=== PATIENT | male | born 1950 | race Caucasian/White ===

== ENCOUNTER → 2018-04-04 08:07 | Outpatient (CLI) | payer MEDICARE, OTHER, SELFPAY ==
[2018-04-04 09:22] LABS: Hematocrit 44.7 % (40-54); Hemoglobin 14.3 g/dl (13.0-16.5); Mean Corpuscular Hgb 28.6 pg (27.0-32.0); Mean Corpuscular Volume 89.4 fL (80-94); Platelet Count 141 K/mm3 (150-450); RBC Distribution Width CV 14.1 % (11.6-14.6); RBC Distribution Width SD 45.8 fl (35.1-43.9); White Blood Count 6.6 K/mm3 (4.4-11.0)
[2018-04-04 09:23] LABS: Mean Platelet Vol. 12.1 fl (6.2-12.0); Protein, Urine (Random) 32.8 mg/dL (<11.9); Protein:Creat Ratio 250 mg/g CRE (0-200); Scan Indicated on CBC? Y/N NO
[2018-04-04 09:46] LABS: Cholesterol 226 mg/dL (200); High Density Lipoprotein 49 mg/dL; Triglycerides 171 mg/dL; Very Low Density Lipoprotein 34 mg/dL (5-40)
[2018-04-04 09:48] LABS: Albumin, Serum 3.9 g/dL (3.2-5.0); BUN 27 mg/dL (7-18); BUN/Creat Ratio 20.8 RATIO (10-20); Calcium,Total 9.5 mg/dL (8.5-10.1); Chloride 107 mmol/L (98-107); EST Glomerular Filtration Rate 58 mL/min (>60); Est Glom Filt Rate - Afr Amer 70 mL/min (>60); Glucose 105 mg/dL (74-106); Magnesium 2.4 mg/dL (1.6-2.6); Potassium 4.1 mmol/L (3.5-5.1); Sodium Level 140 mmol/L (136-145)
[2018-04-06 09:26] LABS: PTHIN 39.3 pg/mL (18.4-80.1)
[2018-04-06 09:27] LABS: Vitamin D,25 Hydroxy 47.2 ng/mL (29.95-100.01)
== END ==
PROVIDERS: Family Medicine; Visit Provider Internal Medicine Nephrology
DX: E55.9 Vitamin D deficiency, unspecified (principal); N18.3 Chronic kidney disease, stage 3 (moderate); Z13.0 Encounter for screening for diseases of the blood and blood-forming organs and certain disorders involving the immune mechanism; N05.1 Unspecified nephritic syndrome with focal and segmental glomerular lesions; E78.5 Hyperlipidemia, unspecified
CPT/HCPCS: 36415; 80061; 80069; 82306; 82570; 83735; 83970; 84156; 85027

== ENCOUNTER → 2018-10-02 07:03 | Outpatient (CLI) | payer MEDICARE, OTHER, SELFPAY ==
[2018-10-02 08:16] LABS: Hematocrit 44.2 % (40-54); Hemoglobin 14.4 g/dl (13.0-16.5); Mean Corp Hgb Conc 32.6 g/gl (32-36); Mean Corpuscular Hgb 29.6 pg (27.0-32.0); Mean Corpuscular Volume 90.9 fL (80-94); Mean Platelet Vol. 12.2 fl (6.2-12.0); Platelet Count 133 K/mm3 (150-450); RBC Distribution Width CV 13.7 % (11.6-14.6); RBC Distribution Width SD 45.1 fl (35.1-43.9); Red Blood Count 4.86 M/mm3 (4.6-6.2); White Blood Count 6.8 K/mm3 (4.4-11.0)
[2018-10-02 08:17] LABS: Scan Indicated on CBC? Y/N NO
[2018-10-02 08:23] LABS: Protein, Urine (Random) 52.1 mg/dL (<11.9); Protein:Creat Ratio 310 mg/g CRE (0-200)
[2018-10-02 08:51] LABS: Albumin, Serum 3.7 g/dL (3.2-5.0); BUN 29 mg/dL (7-18); Calcium,Total 9.3 mg/dL (8.5-10.1); Chloride 106 mmol/L (98-107); Creatinine, Serum 1.32 mg/dL (0.70-1.30); EST Glomerular Filtration Rate 57 mL/min (>60); Est Glom Filt Rate - Afr Amer 69 mL/min (>60); Glucose 124 mg/dL (74-106); Phosphorus 3.3 mg/dL (2.5-4.9); Potassium 4.5 mmol/L (3.5-5.1); Sodium Level 142 mmol/L (136-145)
[2018-10-02 08:58] LABS: Vitamin D,25 Hydroxy 31.4 ng/mL (29.95-100.01)
[2018-10-02 08:59] LABS: PTHIN 72.6 pg/mL (18.4-80.1)
== END ==
PROVIDERS: Family Provider Family Medicine; PCP Family Medicine; Referring Provider Internal Medicine Nephrology; Visit Provider Internal Medicine Nephrology
DX: N18.3 Chronic kidney disease, stage 3 (moderate) (principal); N25.81 Secondary hyperparathyroidism of renal origin; E55.9 Vitamin D deficiency, unspecified; Z13.0 Encounter for screening for diseases of the blood and blood-forming organs and certain disorders involving the immune mechanism
CPT/HCPCS: 36415; 80069; 82306; 82570; 83970; 84156; 85027

== ENCOUNTER → 2018-10-15 13:52 | Outpatient (CLI) | payer MEDICARE, OTHER, SELFPAY ==
--- NOTE | 2018-10-15 | LES_PTH ---
PATIENT: LOUISE CASTANEDA LOC: [facility] U#:[id number] AGE/SX: 75/M ROOM: RE10/15/[address]: Dr. Mark Caldera MD : 1950 BED: DIS: SPEC #: [id number] RECD: 10/16/18 13:42 STATUS: BASILIA FRACNISCA #: [id number] CHANTALE: 10/15/18 00:[address]: Mark Caldera DEPT: SURGICAL PATHOLOGY RECD BY: Elian Montgomery ENTERED: 10/16/18 14:40 SP TYPE: Lesion OTHR DR: Mark Caldera MD Tissues: A - Skin of upper extremity and shoulder B - Skin of forearm, NOS Procedures: Surgery Specimen Level IV HEADER OPERATION: Excision skin lesions, left shoulder and left forearm PRE-OP DIAGNOSIS: Suspicious skin lesions TISSUE SUBMITTED: A - Left shoulder, B - Left forearm MICROSCOPIC DIAGNOSIS A. Skin lesion of left shoulder, shave biopsy: Basal cell carcinoma, nodular and ulcerated. See comment. B. Skin lesion of left forearm, shave biopsy: Basal cell carcinoma, nodular and ulcerated. Solar elastosis. See comment. AM:vic 10/19/18 COMMENT A. The lesion measures approximately 8.5 mm in greatest dimension and extends to the deep margin of excision. Clinical correlation is suggested. B. The lesion measures approximately 5 mm in greatest dimension and extends to the deep margin of excision. Clinical correlation is suggested. MICROSCOPIC DESCRIPTION Slides are reviewed. GROSS DESCRIPTION A - Received in fixative is one container labeled with the patient's name and designated left shoulder. The specimen consists of a light galvez shave biopsy of skin measuring 1.3 x 1 x 0.2 cm. The specimen is inked, serially sectioned and totally submitted in one cassette. B - Received in fixative is one container labeled with the patient's name and designated left forearm. The specimen consists of a light galvez shave biopsy of skin measuring 1.5 x 1.2 x 0.1 cm. The specimen is inked, serially sectioned and totally submitted in one cassette. / AM:vic 10/16/09 TC:0 CPT: 41820 x2
== END ==
PROVIDERS: Family Provider Family Medicine; PCP Family Medicine; Referring Provider Family Medicine; Visit Provider Family Medicine
DX: C44.619 Basal cell carcinoma of skin of left upper limb, including shoulder (principal)
CPT/HCPCS: 88305

== ENCOUNTER → 2018-11-19 08:02 | Outpatient (CLI) | payer MEDICARE, OTHER, SELFPAY ==
--- NOTE | 2018-11-19 | LES_PTH ---
PATIENT: LOUISE CASTANEDA LOC: [facility] U#:[id number] AGE/SX: 75/M ROOM: RE11/19/[address]: Dr. Mark Caldera MD : 1950 BED: DIS: SPEC #: [id number] RECD: 11/19/18 17:21 STATUS: BASILIA FRANCISCA #: [id number] CHANTALE: 11/19/18 00:[address]: Mark Caldera DEPT: SURGICAL PATHOLOGY RECD BY: Erwin Dubois ENTERED: 11/20/18 10:55 SP TYPE: Lesion OTHR DR: Mrak Caldera MD Tissues: Skin of back, NOS Procedures: Surgery Specimen Level IV HEADER OPERATION: Shave lesion left upper back PRE-OP DIAGNOSIS: Rule out BCC TISSUE SUBMITTED: Shave lesion left upper back MICROSCOPIC DIAGNOSIS Left upper back skin lesion, shave biopsy: Basal cell carcinoma, superficial nodular and multifocal, completely excised. Solar elastosis. See comment. AM:rg 4/15/19 COMMENT The largest focus measures 1.6 mm in greatest dimension. Case has been reviewed in consultation with Dr. Pendleton who concurs with the above diagnosis. IDC:SJ MICROSCOPIC DESCRIPTION Slides are reviewed. GROSS DESCRIPTION Received in fixative is one container labeled with the patient's name and designated left upper back. The specimen consists of a shave biopsy of galvez-white skin measuring 1.5 x 1 x 0.1 cm. The specimen is inked and submitted entirely in one cassette. It will be serially sectioned at the time of embedding. / BOB:vic 11/20/18 TC:0 CPT: 85172
== END ==
PROVIDERS: Family Provider Family Medicine; PCP Family Medicine; Referring Provider Family Medicine; Visit Provider Family Medicine
DX: L98.9 Disorder of the skin and subcutaneous tissue, unspecified (principal)
CPT/HCPCS: 88305

== ENCOUNTER → 2019-04-30 07:51 | Outpatient (CLI) | payer MEDICARE, OTHER, SELFPAY ==
[2019-04-30 08:33] LABS: Hematocrit 45.1 % (40-54); Hemoglobin 14.6 g/dL (13.0-16.5); Mean Corp Hgb Conc 32.4 g/dL (32-36); Mean Corpuscular Hgb 29.3 pg (27.0-32.0); Mean Corpuscular Volume 90.6 fL (80-94); Mean Platelet Vol. 11.5 fl (6.2-12.0); Platelet Count 141 K/mm3 (150-450); RBC Distribution Width CV 13.1 % (11.6-14.6); RBC Distribution Width SD 42.8 fl (35.1-43.9); Red Blood Count 4.98 M/mm3 (4.6-6.2); White Blood Count 7.7 K/mm3 (4.4-11.0)
[2019-04-30 08:50] LABS: Protein:Creat Ratio 371 mg/g CRE (0-200)
[2019-04-30 08:56] LABS: Cholesterol 252 mg/dL (200); High Density Lipoprotein 45 mg/dL; Triglycerides 304 mg/dL; Very Low Density Lipoprotein 61 mg/dL (5-40)
[2019-04-30 08:58] LABS: Albumin, Serum 3.5 g/dL (3.2-5.0); BUN 21 mg/dL (7-18); BUN/Creat Ratio 15.4 RATIO (10-20); Calcium,Total 9.1 mg/dL (8.5-10.1); Chloride 106 mmol/L (98-107); Creatinine, Serum 1.36 mg/dL (0.70-1.30); EST Glomerular Filtration Rate 55 mL/min (>60); Est Glom Filt Rate - Afr Amer 67 mL/min (>60); Glucose 118 mg/dL (74-106); PSA,Total - Annual Screen 0.88 ng/mL (0.00-4.00); Phosphorus 2.7 mg/dL (2.5-4.9); Potassium 4.4 mmol/L (3.5-5.1); Sodium Level 142 mmol/L (136-145)
[2019-04-30 10:29] LABS: PTHIN 64.3 pg/mL (18.4-80.1)
[2019-04-30 10:41] LABS: Vitamin D,25 Hydroxy 44.5 ng/mL (29.95-100.01)
== END ==
PROVIDERS: Family Provider Family Medicine; PCP Family Medicine; Referring Provider Internal Medicine Nephrology; Visit Provider Internal Medicine Nephrology
DX: N25.81 Secondary hyperparathyroidism of renal origin (principal); I12.9 Hypertensive chronic kidney disease with stage 1 through stage 4 chronic kidney disease, or unspecified chronic kidney disease; N18.3 Chronic kidney disease, stage 3 (moderate); E55.9 Vitamin D deficiency, unspecified; Z13.0 Encounter for screening for diseases of the blood and blood-forming organs and certain disorders involving the immune mechanism; Z12.5 Encounter for screening for malignant neoplasm of prostate; E78.5 Hyperlipidemia, unspecified
CPT/HCPCS: 36415; 80061; 80069; 82306; 82570; 83970; 84153; 84156; 85027; G0103

== ENCOUNTER → 2020-05-30 07:30 | Outpatient (CLI) | payer MEDICARE, OTHER, SELFPAY ==
[2020-05-30 08:40] LABS: Absolute Lymphocyte Count 1.66 X10^3/uL (0.83-4.51); Absolute Neutrophil Count 3.8 X10^3/uL (2.0-7.7); Basophil# 0.04 X10^3/uL; Basophil% 0.7 % (0-1); Eosinophil# 0.11 X10^3/uL; Eosinophils% 1.8 % (0-5); Hematocrit 43.7 % (40-54); Hemoglobin 13.9 g/dL (13.0-16.5); Lymphocyte # 1.66 X10^3/ul (4.0); Mean Corp Hgb Conc 31.8 g/dL (32-36); Mean Corpuscular Hgb 29.2 pg (27.0-32.0); Mean Corpuscular Volume 91.8 fL (80-94); Mean Platelet Vol. 12.1 fl (6.2-12.0); Monocyte# 0.45 X10^3/uL; Monocyte% 7.3 % (0-10); NRBC Flagged by Analyzer 0 % (0-5); Neutrophil # 3.84 X10^3/uL (2.7-7.7); Neutrophil % 62.4 % (47-70); Platelet Count 135 K/mm3 (150-450); RBC Distribution Width CV 13.2 % (11.6-14.6); RBC Distribution Width SD 44.3 fl (35.1-43.9); Red Blood Count 4.76 M/mm3 (4.6-6.2); White Blood Count 6.2 K/mm3 (4.4-11.0)
[2020-05-30 09:21] LABS: Albumin, Serum 3.5 g/dL (3.2-5.0); BUN 24 mg/dL (7-18); BUN/Creat Ratio 18.5 RATIO (10-20); Calcium,Total 8.9 mg/dL (8.5-10.1); Chloride 107 mmol/L (98-107); Cholesterol 208 mg/dL (200); EST Glomerular Filtration Rate 58 mL/min (>60); Est Glom Filt Rate - Afr Amer 70 mL/min (>60); Glucose 123 mg/dL (74-106); High Density Lipoprotein 46 mg/dL; PSA,Total - Annual Screen 1.13 ng/mL (0.00-4.00); Phosphorus 2.6 mg/dL (2.5-4.9); Potassium 4.1 mmol/L (3.5-5.1); Sodium Level 139 mmol/L (136-145); Triglycerides 215 mg/dL; Very Low Density Lipoprotein 43 mg/dL (5-40)
[2020-05-30 09:34] LABS: Protein, Urine (Random) 64.9 mg/dL (<11.9); Protein:Creat Ratio 377 mg/g CRE (0-200)
[2020-05-30 09:56] LABS: PTHIN 79.7 pg/mL (18.4-80.1)
[2020-05-30 10:08] LABS: Vitamin D,25 Hydroxy 51.4 ng/mL
== END ==
PROVIDERS: PCP Family Medicine; Referring Provider Family Medicine; Visit Provider Family Medicine
DX: I12.9 Hypertensive chronic kidney disease with stage 1 through stage 4 chronic kidney disease, or unspecified chronic kidney disease (principal); N18.30 Chronic kidney disease, stage 3 unspecified; E55.9 Vitamin D deficiency, unspecified; N25.81 Secondary hyperparathyroidism of renal origin; Z13.0 Encounter for screening for diseases of the blood and blood-forming organs and certain disorders involving the immune mechanism; E78.5 Hyperlipidemia, unspecified; Z12.5 Encounter for screening for malignant neoplasm of prostate
CPT/HCPCS: 80061; 80069; 82306; 82570; 83970; 84153; 84156; 85025; G0103

== ENCOUNTER → 2020-10-18 11:37 | Outpatient (CLI) | payer MEDICARE, OTHER, SELFPAY ==
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
== END ==
PROVIDERS: PCP Family Medicine; Referring Provider Family Medicine; Visit Provider Family Medicine
DX: S20.219A Contusion of unspecified front wall of thorax, initial encounter (principal)
CPT/HCPCS: 71111; 71120

== ENCOUNTER → 2021-05-26 09:39 | Outpatient (CLI) | payer MEDICARE, OTHER, SELFPAY ==
[2021-05-26 10:55] LABS: Hematocrit 46.1 % (40-54); Hemoglobin 14.5 g/dL (13.0-16.5); Mean Corp Hgb Conc 31.5 g/dL (32-36); Mean Corpuscular Hgb 28.7 pg (27.0-32.0); Mean Corpuscular Volume 91.1 fL (80-94); Mean Platelet Vol. 11.3 fl (6.2-12.0); Platelet Count 139 K/mm3 (150-450); RBC Distribution Width CV 13.2 % (11.6-14.6); RBC Distribution Width SD 43.6 fl (35.1-43.9); Red Blood Count 5.06 M/mm3 (4.6-6.2); White Blood Count 7.4 K/mm3 (4.4-11.0)
[2021-05-26 11:37] LABS: Anion Gap 5 (5-15); BUN 23 mg/dL (7-18); Calcium,Total 9.5 mg/dL (8.5-10.1); Chloride 106 mmol/L (98-107); Cholesterol 222 mg/dL (200); Creatinine, Serum 1.28 mg/dL (0.70-1.30); EST Glomerular Filtration Rate 59 mL/min (>60); Est Glom Filt Rate - Afr Amer 71 mL/min (>60); Glucose 106 mg/dL (74-106); High Density Lipoprotein 46 mg/dL; Phosphorus 3.1 mg/dL (2.5-4.9); Potassium 4.6 mmol/L (3.5-5.1); Sodium Level 141 mmol/L (136-145); Triglycerides 185 mg/dL; Very Low Density Lipoprotein 37 mg/dL (5-40)
[2021-05-26 11:44] LABS: Protein, Urine (Random) 48.9 mg/dL (<11.9); Protein:Creat Ratio 385 mg/g CRE (0-200)
[2021-05-28 10:46] LABS: PTHIN 50.3 pg/mL (18.4-80.1)
[2021-05-28 10:51] LABS: Vitamin D,25 Hydroxy 44.6 ng/mL
== END ==
PROVIDERS: PCP Family Medicine; Visit Provider Family Medicine
DX: N18.31 Chronic kidney disease, stage 3a (principal); E78.5 Hyperlipidemia, unspecified; Z12.5 Encounter for screening for malignant neoplasm of prostate
CPT/HCPCS: 36415; 80048; 80061; 82306; 82570; 83970; 84100; 84153; 84156; 85027; G0103

== ENCOUNTER → 2021-06-29 | Outpatient (CLI) | payer MEDICARE, OTHER, SELFPAY ==
--- NOTE | 2021-06-28 16:51 | LES_PTH ---
PATIENT: LOUISE CASTANEDA LOC: [facility] U#:[id number] AGE/SX: 71/M ROOM: RE06/29/[address]: Dr. Mark Caldera MD : 1950 BED: DIS: 06/29/2021 SPEC #: [id number] RECD: 06/29/21 09:54 STATUS: BASILIA FRANCISCA #: [id number] CHANTALE: 06/28/21 16:[address]: Mark Caldera DEPT: SURGICAL PATHOLOGY RECD BY: Kathi Hauser Tissues: Skin of nose, NOS Procedures: Surgery Specimen Level IV HEADER OPERATION: Right nose shave biopsy PRE-OP DIAGNOSIS: Rule out atypical nevus TISSUE SUBMITTED: Right nose nevus MICROSCOPIC DIAGNOSIS Nevus of right nose, biopsy: Mild actinic change. Extensive solar elastosis. Minimal chronic inflammation. AM:vic 07/03/2021 MICROSCOPIC DESCRIPTION Slides are reviewed. GROSS DESCRIPTION Received is one container labeled with the patient's name and not further designated. The specimen consists of a round piece of galvez-white skin measuring 0.4 x 0.4 x 0.1 cm. The entire specimen is submitted in one cassette. / SJ:vic 07/02/21 TC:5 CPT: 43278
== END | disposition home or self-care (01) ==
LOC: LABSPEC 10:37
PROVIDERS: PCP Family Medicine; Visit Provider Family Medicine
DX: Z00.00 Encounter for general adult medical examination without abnormal findings (principal)
CPT/HCPCS: 88305

== ENCOUNTER → 2022-06-07 | Outpatient (CLI) | payer MEDICARE, OTHER, SELFPAY ==
[2022-06-07 08:26] LABS: Hematocrit 44.1 % (40-54); Hemoglobin 14.7 g/dL (13.0-16.5); Mean Corp Hgb Conc 33.3 g/dL (32-36); Mean Corpuscular Hgb 29.7 pg (27.0-32.0); Mean Corpuscular Volume 89.1 fL (80-94); Mean Platelet Vol. 11.5 fl (6.2-12.0); Platelet Count 135 K/mm3 (150-450); RBC Distribution Width CV 13.2 % (11.6-14.6); RBC Distribution Width SD 42.8 fl (35.1-43.9); Red Blood Count 4.95 M/mm3 (4.6-6.2); White Blood Count 7.2 K/mm3 (4.4-11.0)
[2022-06-07 08:30] LABS: Protein, Urine (Random) 68.4 mg/dL (<11.9); Protein:Creat Ratio 410 mg/g CRE (0-200)
[2022-06-07 08:37] LABS: PTHIN 56.9 pg/mL (18.4-80.1)
[2022-06-07 08:41] LABS: ALB/GLOB Ratio 0.9 RATIO (0.9-2.4); AST(SGOT) 15 U/L (15-37); Alanine Aminotransfer ALT/SGPT 24 U/L (16-61); Albumin, Serum 3.6 g/dL (3.2-5.0); Alkaline Phosphatase 61 U/L (45-117); Anion Gap 4 (5-15); BUN 23 mg/dL (7-18); BUN/Creat Ratio 17.2 RATIO (10-20); Calcium,Total 9.7 mg/dL (8.5-10.1); Chloride 107 mmol/L (98-107); Cholesterol 220 mg/dL (200); Creatinine, Serum 1.34 mg/dL (0.70-1.30); EST Glomerular Filtration Rate 56 mL/min (>60); Est Glom Filt Rate - Afr Amer 67 mL/min (>60); Globulin 3.9 g/dL (2.2-4.2); Glucose 116 mg/dL (74-106); High Density Lipoprotein 46 mg/dL; PSA,Total - Annual Screen 2.23 ng/mL (0.00-4.00); Phosphorus 2.8 mg/dL (2.5-4.9); Potassium 4.1 mmol/L (3.5-5.1); Protein, Total 7.5 g/dL (6.4-8.2); Sodium Level 140 mmol/L (136-145); Triglycerides 239 mg/dL; Very Low Density Lipoprotein 48 mg/dL (5-40)
[2022-06-07 08:52] LABS: Vitamin D,25 Hydroxy 47.4 ng/mL
== END | disposition home or self-care (01) ==
LOC: LAB 07:52
PROVIDERS: PCP Family Medicine; Referring Provider Family Medicine; Visit Provider Family Medicine
DX: N18.31 Chronic kidney disease, stage 3a (principal); N25.81 Secondary hyperparathyroidism of renal origin; E55.9 Vitamin D deficiency, unspecified; Z12.5 Encounter for screening for malignant neoplasm of prostate
CPT/HCPCS: 36415; 80053; 80061; 82306; 82570; 83970; 84100; 84153; 84156; 85027; G0103

== ENCOUNTER → 2023-05-28 | Outpatient (CLI) | payer MEDICARE, OTHER, SELFPAY ==
[2023-05-28 08:15] LABS: Hemoglobin 14.5 g/dL (13.0-16.5); Mean Corp Hgb Conc 31.5 g/dL (32-36); Mean Corpuscular Hgb 29.2 pg (27.0-32.0); Mean Corpuscular Volume 92.6 fL (80-94); Mean Platelet Vol. 11.5 fl (6.2-12.0); Platelet Count 142 K/mm3 (150-450); RBC Distribution Width CV 13.5 % (11.6-14.6); RBC Distribution Width SD 45.6 fl (35.1-43.9); Red Blood Count 4.97 M/mm3 (4.6-6.2); White Blood Count 7.7 K/mm3 (4.4-11.0)
[2023-05-28 08:43] LABS: PTHIN 70.8 pg/mL (18.4-80.1)
[2023-05-28 08:47] LABS: ALB/GLOB Ratio 0.8 RATIO (0.9-2.4); AST(SGOT) 18 U/L (15-37); Alanine Aminotransfer ALT/SGPT 35 U/L (16-61); Albumin, Serum 3.4 g/dL (3.2-5.0); Alkaline Phosphatase 56 U/L (45-117); Anion Gap 3 (5-15); BUN 26 mg/dL (7-18); BUN/Creat Ratio 19.7 RATIO (10-20); Calcium,Total 9.2 mg/dL (8.5-10.1); Chloride 107 mmol/L (98-107); Cholesterol 218 mg/dL (200); Creatinine, Serum 1.32 mg/dL (0.70-1.30); EST Glomerular Filtration Rate 56 mL/min (>60); Est Glom Filt Rate - Afr Amer 68 mL/min (>60); Globulin 4.2 g/dL (2.2-4.2); Glucose 133 mg/dL (74-106); High Density Lipoprotein 51 mg/dL; Phosphorus 2.7 mg/dL (2.5-4.9); Potassium 4.2 mmol/L (3.5-5.1); Protein, Total 7.6 g/dL (6.4-8.2); Sodium Level 139 mmol/L (136-145); Triglycerides 290 mg/dL; Very Low Density Lipoprotein 58 mg/dL (5-40)
[2023-05-28 08:48] LABS: Vitamin D,25 Hydroxy 43.5 ng/mL
[2023-05-28 09:11] LABS: Protein, Urine (Random) 60.4 mg/dL (<11.9); Protein:Creat Ratio 408 mg/g CRE (0-200)
== END | disposition home or self-care (01) ==
LOC: LAB 07:48
PROVIDERS: PCP Family Medicine; Referring Provider Internal Medicine Nephrology; Visit Provider Internal Medicine Nephrology
DX: N18.31 Chronic kidney disease, stage 3a (principal); N25.81 Secondary hyperparathyroidism of renal origin; E55.9 Vitamin D deficiency, unspecified; Z13.0 Encounter for screening for diseases of the blood and blood-forming organs and certain disorders involving the immune mechanism
CPT/HCPCS: 36415; 80053; 80061; 82306; 82570; 83970; 84100; 84156; 84403; 85027

== ENCOUNTER → 2024-07-28 | Outpatient (CLI) | payer MEDICARE, OTHER, SELFPAY ==
--- NOTE | 2024-07-27 17:00 | LES_PTH ---
PATIENT: LOUISE CASTANEDA LOC: [facility] U#:[id number] AGE/SX: 74/M ROOM: RE07/28/[address]: Dr. Mark Caldera MD : 1950 BED: DIS: 07/28/2024 SPEC #: [id number] RECD: 07/28/24 10:02 STATUS: BASILIA FRANCISCA #: [id number] CHANTALE: 07/27/24 17:[address]: Mark Caldera DEPT: SURGICAL PATHOLOGY RECD BY: Kathi Hauser Tissues: A - Skin, NOS B - Skin, NOS Procedures: Surgery Specimen Level IV HEADER OPERATION: Shave biopsy PRE-OP DIAGNOSIS: Squamous cell carcinoma ? TISSUE SUBMITTED: A- Center posterior, B- Left center scalp MICROSCOPIC DIAGNOSIS A. Skin lesion, center posterior, shave biopsy: Inflamed verrucous keratosis with moderate atypia. Solar elastosis. See comment. B. Left center scalp lesion, shave biopsy: Atypical squamous epithelial lesion with verrucous feature. See comment. 07/29/2024 COMMENT A & B. The lesion is present at the deep margin of the specimen. Excision of the lesions are suggested, if clinically indicated. Correlation with clinical findings and appropriate follow up are necessary. Case has been reviewed in consultation with Dr. Dave who concurs with the above diagnosis. IDC:AM MICROSCOPIC DESCRIPTION Slides are reviewed. GROSS DESCRIPTION A. Received is one container labeled with the patient's name and not further designated. The specimen consists of a shave biopsy of galvez-white skin measuring 1.0 x 0.8 x 0.1cm. The specimen is inked, serially sectioned and submitted entirely in one cassette. B. Received is one container labeled with the patient's name and not further designated. The specimen consists of a shave biopsy of galvez-white skin measuring 0.6 x 0.4 x 0.1cm. The specimen is inked, serially sectioned and submitted entirely in one cassette. BOB. 07/28/2024 TC: CPT:62589m1
== END | disposition home or self-care (01) ==
LOC: LABSPEC 10:10
PROVIDERS: PCP Family Medicine; Referring Provider Family Medicine; Visit Provider Family Medicine
DX: C80.1 Malignant (primary) neoplasm, unspecified (principal)
CPT/HCPCS: 88305